=== PATIENT | male | born 1955 | race Two or more races ===

== ENCOUNTER 2024-05-25 08:17 | Emergency (ER) | payer OTHER ==
[~2024-05-25] VITALS: Ht 182.9 cm; Wt 92.1 kg
[2024-05-25] MEDS ORDERED: ADULT LOW DOSE81 M1 PO (08:35)
[2024-05-25] MEDS ORDERED: TOPROL XL100 M1 PO (08:35)
[2024-05-25] MEDS ORDERED: ATACAND32 MG PO (08:35)
[2024-05-25] MEDS ORDERED: FLECAINIDE ACET50 MG PO (08:40)
[2024-05-25] MEDS ORDERED: LEVOXYL88 MCG PO (08:41)
[2024-05-25] MEDS ORDERED: GLIMEPIRIDE2 MG PO (08:41)
[2024-05-25] MEDS ORDERED: SYNJARDY 12.5-1 EACH PO (08:41)
[2024-05-25] MEDS ORDERED: XARELTO20 MG PO (08:42)
[2024-05-25] MEDS ORDERED: LEXAPRO20 MG PO (08:42)
[2024-05-25] MEDS ORDERED: HYOSCYAMINE SULFATE 0.125 MG TAB.SUBL ONE (09:13)
[2024-05-25] MEDS ORDERED: HYOSCYAMINE SULFATE 0.125 MG TAB.SUBL SL ONE (09:15)
[2024-05-25] MEDS ORDERED: 0.9 % SODIUM CHLORIDE 1,000 ML IV SCH (09:15)
[2024-05-25 09:40] LABS: HEMATOCRIT 35.4 % (39.0-48.0); HEMOGLOBIN 11.9 g/dL (13-16.00); MEAN CELL VOLUME 105.4 fL (80.0-100.00); MEAN CORPUSCULAR HEMOGLOBIN 35.3 pg (27.00-32.0); MEAN CORPUSCULAR HGB CONC 33.5 g/dl (32.0-36.0); RED BLOOD COUNT 3.36 M/uL (4.00-6.00); RED CELL DISTRIBUTION WIDTH 15.9 % (11.5-14.5)
[2024-05-25 10:31] LABS: ALBUMIN 2.9 gm/dL (3.4-5.0); BILIRUBIN TOTAL 0.99 mg/dL (0.3-1.2); CALCIUM 8.3 mg/dL (8.5-10.1); CREATININE SERUM 0.92 mg/dL (0.70-1.30); GFR 81.81; GLOBULINA 3.2 G/DL (2.4-3.5); POTASSIUM 3.59 mEq/L (3.5-5.1); TOTAL PROTEIN 6.1 gm/dL (6.4-8.2)
[2024-05-25 10:45] LABS: PLATELET COUNT 86 K/uL (150-450)
[2024-05-25 12:03] LABS: URINE APPEARANCE Clear; URINE BILIRRUBIN Negative (NEGATIVE); URINE BLOOD Negative; URINE COLOR Yellow; URINE KETONE Negative (NEGATIVE); URINE LEUKOCYTE Negative; URINE NITRATE Negative; URINE PROTEIN 30 (NEGATIVE); URINE UROBILINOGEN 0.2 E.U./dl
[2024-05-25 12:06] LABS: URINE BACTERIA 18.3 uL (0.0-1933); URINE EPITHELIAL CELLS 23.1 uL (0.0-38.8); URINE WBC 3.6 uL (0.0-23.2)
[2024-05-25 12:14] LABS: URINE GLUCOSE >=1000 MG/DL (NEGATIVE); URINE RBC 0.8 uL (0.0-20.8)
[2024-05-25] MEDS ORDERED: METROnidazole 500 MG TABLET PO ONE ×2 (14:33→14:45)
== END 2024-05-25 15:34 | disposition home or self-care (01) ==
LOC: ER 08:18
PROVIDERS: Emergency Medicine
DX: A05.9 Bacterial foodborne intoxication, unspecified (principal); C88.00 Waldenstrom macroglobulinemia not having achieved remission; R19.7 Diarrhea, unspecified; I10 Essential (primary) hypertension; Z88.6 Allergy status to analgesic agent

== ENCOUNTER 2024-07-18 08:18 | Outpatient (CLI) | payer OTHER ==
[~2024-07-18 08:18] MED LIST: ADULT LOW DOSE81 M1 PO; ATACAND32 MG PO; FLECAINIDE ACET50 MG PO; GLIMEPIRIDE2 MG PO; LEVOXYL88 MCG PO; LEXAPRO20 MG PO; SYNJARDY 12.5-1 EACH PO; TOPROL XL100 M1 PO; XARELTO20 MG PO
== END 2024-07-18 08:22 | disposition home or self-care (01) ==
LOC: SONOGRAMA 08:18
PROVIDERS: ATTEND Pathology Anatomic Pathology & Clinical Pathology
DX: D34 Benign neoplasm of thyroid gland (principal); E07.89 Other specified disorders of thyroid; E04.2 Nontoxic multinodular goiter